=== PATIENT | male | born 1980 | race Hispanic/Latino ===

== ENCOUNTER 2020-08-29 13:31 | Outpatient (CLI) | payer BC | END 2020-08-29 13:32 | disposition home or self-care (01) | LOC: CSHMRI 13:31 | PROVIDERS: ATTEND Psychiatry & Neurology Neurology | DX: G04.91 Myelitis, unspecified (principal); H47.092 Other disorders of optic nerve, not elsewhere classified, left eye | CPT/HCPCS: 70553; 72141; 72146 ==

== ENCOUNTER 2022-12-11 08:06 | Outpatient (CLI) | payer BC | END 2022-12-11 08:07 | disposition home or self-care (01) | LOC: CSHRAD 08:06 | PROVIDERS: ATTEND Neurological Surgery | DX: M31.30 Wegener's granulomatosis without renal involvement (principal) | CPT/HCPCS: 71046 ==